=== PATIENT | female | born 1985 | race American Indian/Alaskan Native ===

== ENCOUNTER 2017-03-19 12:04 | Emergency (ER) | payer MEDICAID ==
[2017-03-19 13:02] VITALS: BP 115/77
[2017-03-19] MEDS ORDERED: TESSALON PERLES PO ONE (14:54)
--- NOTE | 2017-03-19 14:54 | Emergency Department Report ---
Blank Doc - Documentation Documentation: Patient is a 31-year-old female who is presenting with cough. Patient states that she has a metallic taste in her mouth secondary to the cough but is dry and nonproductive. Patient states the cough has been present for approximately 4 days. Patient also has aching pain in the chest with cough as well. Patient states that she has had several episodes where she'll cough and vomit as well. Patient does have some burning sensation in the throat Lungs were clear however patient's throat she did have some significant erythema and tonsillar exudates. I will order a chest x-ray and rapid strep as well as a Monospot
--- NOTE | 2017-03-19 16:19 | XRay Report ---
FINAL REPORT PROCEDURE: XR CHEST ROUTINE 2V TECHNIQUE: PA and lateral views HISTORY: cough COMPARISON: None FINDINGS: The trachea is midline. The heart is normal in size. The lungs are clear. There is no evident pneumothorax or pleural fluid. The thoracic cage is intact. IMPRESSION: No radiographically evident acute cardiopulmonary disease
--- NOTE | 2017-03-19 16:36 | Emergency Department Report ---
Minor Respiratory - HPI Chief Complaint: Chest Pain Stated Complaint: FLU LIKE SYMPTOMS Time Seen by Provider: 03/19/17 14:35 Duration: 3 Days Severity: moderate Minor Respiratory: Yes Rhinorrhea, Yes Sore Throat, Yes Able to Tolerate Fluids , Yes Cough, Yes Shortness of Breath, Yes Fever, No Ear Pain, No Sick Contacts, No Hemoptysis (productive cough), No Chest Pain Other History: Please see my brief note with the medical screening exam ED Review of Systems ROS: Stated complaint: FLU LIKE SYMPTOMS Other details as noted in HPI Comment: All other systems reviewed and negative ED Past Medical Hx - Past Medical History Previous Medical History?: No - Social History Smoking Status: Never Smoker Substance Use Type: None - Medications Home Medications: Home Medications Medication Instructions Recorded Confirmed Last Taken Type Ibuprofen [Motrin] 800 mg PO TID PRN #20 tablet 01/05/13 Unknown Rx ALBUTEROL Inhaler [ProAir HFA 2 puff IH QID PRN #1 inhalation 03/19/17 Unknown Rx Inhaler] Azithromycin [Zithromax] 250 mg PO DAILY #6 tablet 03/19/17 Unknown Rx Benzonatate [Tessalon Perle] 100 mg PO TID #12 capsule 03/19/17 Unknown Rx HYDROcodone/APAP 5-325 [[place] 1 each PO Q6HR PRN #12 tablet 03/19/17 Unknown Rx 5/325] predniSONE [Deltasone] 20 mg PO QDAY #5 tab 03/19/17 Unknown Rx Minor Respiratory Exam - Exam General: Vital signs noted. No distress. Alert and acting appropriately. HEENT: Yes Pharyngeal Erythema, Yes Pharyngeal Exudates, Yes Moist Mucous Membranes, No Rhinorrhea, No Conjuctival Injection, No Frontal Tenderness, No Maxillary Tenderness Ear: Neither TM Bulge, Neither TM Erythema, Neither EAC Pain, Neither EAC Discharge Neck: Yes Supple, No Adenopathy Lungs: Yes Good Air Exchange, No Wheezes, No Ronchi, No Stridor, No Cough, No Labored Respirations, No Retractions, No Use of Accessory Muscles, No Other Abnormal Lung Sounds Heart: Yes Regular, No Murmur Abdomen: Yes Normal Bowel Sounds, No Tenderness, No Peritoneal Signs Skin: No Rash, No Edema Neurologic: Alert and oriented, no deficits. Musculoskeletal: Unremarkable. ED Course Vital Signs 03/19/17 12:57 Temperature 100.4 F H Pulse Rate 91 H Respiratory 18 Rate Blood Pressure 115/77 O2 Sat by Pulse 100 Oximetry ED Medical Decision Making - Lab Data Patient's a mono test and rapid strep are both negative - EKG Data -: EKG Interpreted by Me EKG shows normal: sinus rhythm, axis, intervals, QRS complexes, ST-T waves - EKG Data Interpretation: normal EKG - Radiology Data Radiology results: report reviewed Chest x-ray is within normal limits - Medical Decision Making Patient is a 31-year-old [place] female who is presenting with cough, congestion patient does have acute bronchitis and ruled out for pneumonia strep and mono patient be discharged this time with medications for symptomatic relief thank you Critical care attestation.: If time is entered above; I have spent that time in minutes in the direct care of this critically ill patient, excluding procedure time. ED Disposition Clinical Impression: Acute bronchitis Qualifiers: Bronchitis organism: unspecified organism Qualified Code(s): J20.9 - Acute bronchitis, unspecified Disposition: DC-01 TO HOME OR SELFCARE Is pt being admited?: No Does the pt Need Aspirin: No Condition: Stable Instructions: Acute Bronchitis (ED) Prescriptions: ALBUTEROL Inhaler [ProAir HFA Inhaler] 2 puff IH QID PRN #1 inhalation PRN Reason: Shortness Of Breath Azithromycin [Zithromax] 250 mg PO DAILY #6 tablet Benzonatate [Tessalon Perle] 100 mg PO TID #12 capsule HYDROcodone/APAP 5-325 [[place] 5/325] 1 each PO Q6HR PRN #12 tablet PRN Reason: Pain predniSONE [Deltasone] 20 mg PO QDAY #5 tab Referrals: PRIMARY CARE, [Primary Care Provider] - 3-5 Days
== END 2017-03-19 16:50 | disposition home or self-care (01) ==
LOC: ED 12:04
DX: J20.9 Acute bronchitis, unspecified (principal)
CPT/HCPCS: 36415; 71046; 86308; 87116; 87430; 93005; 93010